=== PATIENT | female | born 1990 | race African-American/Black ===

== ENCOUNTER 2019-01-05 20:58 | Day surgery (SDC) | payer BC ==
[2019-01-05 21:40] VITALS: BMI 35.6
[2019-01-05] MEDS ORDERED: hydrALAZINE 20 MG/ML VIAL SLOW IVP PRN (22:08)
--- NOTE | 2019-01-06 04:40 | SS ---
DATE OF ADMISSION: 01/05/2019 DATE OF DISCHARGE: 01/05/2019 REGULAR PHYSICIAN: Bib Harper MD EVALUATING PHYSICIAN: Chan Elise MD CHIEF COMPLAINT: Spotting. HISTORY OF PRESENT ILLNESS: Ms. Donis is a 28-year-old black G3, P1, with an estimated date of confinement of 04/10/2019, who presents complaining of spotting early this morning. She states she then had sexual intercourse and had more spotting after that. Since that time, she denies leakage of fluid or decreased movement. Her care has been with Dr. Harper and she has been followed for chronic hypertension. PAST OBSTETRICAL HISTORY: Includes one vaginal delivery at term. PAST MEDICAL HISTORY: Chronic hypertension as above. PAST SURGICAL HISTORY: Ectopic of her left fallopian tube. CURRENT MEDICATIONS: 1. vitamins. 2. Aspirin 81 mg daily. 3. Labetalol 100 mg p.o. b.i.d. ALLERGIES: NO KNOWN ALLERGIES. SOCIAL HISTORY: Denies tobacco, alcohol, or drug use. FAMILY HISTORY: Unremarkable. REVIEW OF SYSTEMS: Denies nausea, vomiting, fever, chills, ruptured membranes, or decreased movement. PHYSICAL EXAMINATION: VITAL SIGNS: Stable and she is afebrile in triage. GENERAL: She is very pleasant and in no acute distress. ABDOMEN: Soft, nontender, and gravid. PELVIC: Done by speculum shows the cervix to be closed. There is no blood in the vault. heart rate tracing is stable. No uterine contractions are seen. ASSESSMENT: 1. A 26 and 3/7th week intrauterine . 2. No evidence of bleeding at this time, suspect cervicitis earlier. PLAN: The patient will be dismissed to home. She was given complete precautions and was told to return here should she notice any bleeding or contractions. She voiced understanding of her discharge instructions and was sent home in good condition. Job ID: [id number]
== END 2019-01-05 22:25 | disposition home or self-care (01) ==
LOC: L&D/OP 20:58
PROVIDERS: ATTEND Obstetrics & Gynecology
DX: O26.852 Spotting complicating pregnancy, second trimester (principal); O10.912 Unspecified pre-existing hypertension complicating pregnancy, second trimester; Z3A.26 26 weeks gestation of pregnancy; Z79.82 Long term (current) use of aspirin; Z79.899 Other long term (current) drug therapy
CPT/HCPCS: 99283

== ENCOUNTER 2019-03-20 05:30 | Inpatient (IN) | payer BC ==
[2019-03-20 07:25] VITALS: BMI 37.3
[2019-03-20] MEDS ORDERED: Promethazine HCl 25 MG/ML VIAL IM PRN (08:22)
[2019-03-20] MEDS ORDERED: Ondansetron PF 4 MG/2 ML Vial IVP PRN ×2 (08:22→21:11)
[2019-03-20] MEDS ORDERED: hydrALAZINE 20 MG/ML VIAL SLOW IVP PRN ×2 (08:22→21:11)
[2019-03-20] MEDS ORDERED: HYDROcodone/Acetaminophen 5/325 mg Tablet PO PRN ×2 (08:22)
[2019-03-20] MEDS ORDERED: Lactated Ringer's 1,000 ML IV SCH ×2 (08:22)
[2019-03-20] MEDS ORDERED: NS w/ Oxytocin 10 units 500 ML IV SCH (08:22)
[2019-03-20] MEDS ORDERED: Zolpidem Tartrate 5 MG TAB PO PRN (08:22)
[2019-03-20] MEDS ORDERED: Lidocaine 1% (PF) 30 ML VIAL SC PRN (08:22)
[2019-03-20] MEDS ORDERED: Butorphanol Tartrate 1 MG/ML VIAL SLOW IVP PRN (08:22)
[2019-03-20] MEDS ORDERED: NS / Oxytocin 40 units/1000ml 1,000 ML IV PRN (08:22)
[2019-03-20] MEDS ORDERED: Ibuprofen 800 MG TAB PO PRN (08:22)
[2019-03-20] MEDS ORDERED: NS w/ Oxytocin 10 units 500 ML ONE (08:23)
[2019-03-20 08:24] LABS: Hemoglobin 11.8 g/dL (12.0-16.0); Mean Corpuscular HGB CONC 33.3 g/dL (32.0-36.0); Mean Corpuscular Hemoglobin 29.4 pg (27.0-31.0); Mean Corpuscular Volume 88.4 fL (78.0-98.0); Mean Platelet Volume 9.7 fL (7.4-10.4); Platelet Count 251 thou/uL (130-400); RBC Distribution Width 12.5 % (11.5-14.5); White Blood Cell (WBC) Count 7.2 thou/uL (4.8-10.8)
[2019-03-20 09:03] LABS: Syphilis Antibody Nonreactive (Nonreactive); Syphilis Antibody Index 0.06 S/CO (<1.00 Non-Reactive)
[2019-03-20 09:14] LABS: HIV (1/2) Antibody/Antigen Non-Reactive (NonReactive); HIV 1/2 INDEX 0.13 S/CO (<1.00)
[2019-03-20 09:17] LABS: HBSAB Concentration Greater than 1000.00 mIU/mL; Hep B Surf AB Reactive (NonReactive)
[2019-03-20] MEDS: Labetalol 100 MG TAB PO SCH ×2 (15:10→23:03)
[2019-03-20] MEDS ORDERED: Fentanyl 4 mcg/Bup 0.1% Cadd 100 ML ONE (16:53)
--- NOTE | 2019-03-20 19:19 | PDOC.OPDEL ---
OB Operative/Delivery Note Delivery Dr/Surgeon: Leroy VALDEZ for Leroy RUIZ Pre-Delivery Diagnosis: medically indicated induction (a2 dm htn and hx of lv hypertrophy) Procedure/Post Delivery Dx: spontaneous vaginal delivery Weeks gestation: 37 Anesthesia: epidural - Findings A Sex: male Weight: 0 oz (pend) - 1 min: 8 - 5 min: 9 - Additional Findings/Plan Placenta delivered: spontaneous Repaired Obstetrical Laceration: none Estimated blood loss: 150 Post delivery plan: routine recovery
[2019-03-20] MEDS ORDERED: Lanolin Ointment 7 GM TUBE TOP PRN (21:11)
[2019-03-20] MEDS ORDERED: Milk Of Magnesia 30 ML UDCUP PO PRN (21:11)
[2019-03-20] MEDS ORDERED: NS / Oxytocin 40 units/1000ml 1,000 ML IV SCH (21:11)
[2019-03-20] MEDS ORDERED: Bisacodyl 10 MG SUPP PR PRN (21:11)
[2019-03-20] MEDS: Docusate Calcium (SURFAK) 240 MG CAP PO SCH (23:03)
[2019-03-20] MEDS: Ibuprofen 800 MG TAB PO SCH (23:03)
[2019-03-21] MEDS: Ibuprofen 800 MG TAB PO SCH ×3 (06:08→21:01)
--- NOTE | 2019-03-21 07:38 | PRG ---
DATE OF SERVICE: 03/21/2019 TIME OF SERVICE: 0653 hours. SUBJECTIVE: day #1. The patient is resting comfortably. She reports only issues are mild hypoglycemia with the infant, which I explained was not uncommon for someone who had been on glyburide. OBJECTIVE: VITAL SIGNS: Temperature 98.8, T-max 99.0, pulse 84, respirations 18, and blood pressure 133/81. HEENT: Within normal limits. LUNGS: Clear to auscultation bilaterally. HEART: Regular rhythm. ABDOMEN: Soft, nontender. No rebound or guarding. GENITALIA: Vulva without lesions. Normal lochia. EXTREMITIES: Without clubbing, cyanosis, or edema. LABORATORY DATA: Fasting blood sugar of 72. IMPRESSION: 1. day #1, status post normal spontaneous vaginal delivery at approximately 1900 hours on 03/20. 2. History of left ventricular hypertrophy with good cardiac output during , stable on labetalol 100 b.i.d. 3. History of A2 gestational diabetes, now with normal fasting blood sugars, off medications. PLAN: Routine care. Discharge home tomorrow on 03/[address] Ashok Mcdonough for her history of left ventricular hypertrophy and in [address] [facility] for exam. Job ID: [id number]
[2019-03-21] MEDS: Labetalol 100 MG TAB PO SCH ×2 (09:43→21:01)
[2019-03-21] MEDS: Docusate Calcium (SURFAK) 240 MG CAP PO SCH ×2 (09:43→21:01)
[2019-03-21] MEDS: Ferrous Sulfate 325 MG TAB PO SCH ×2 (10:30→17:06)
[2019-03-21] MEDS ORDERED: Adacel (T-DAP) 0.5 ML SYRINGE IM ONE (21:00)
[2019-03-22] MEDS: Ibuprofen 800 MG TAB PO SCH ×2 (05:14→18:08)
[2019-03-22] MEDS: Ferrous Sulfate 325 MG TAB PO SCH ×2 (07:15→18:09)
--- NOTE | 2019-03-22 08:19 | DIS ---
DATE OF ADMISSION: 03/20/2019 DATE OF DISCHARGE: 03/22/2019 ADMITTING DIAGNOSES: 1. Intrauterine at 37 weeks. 2. Mild hypertension, on labetalol. 3. A2 diabetes, on glyburide. DISCHARGE DIAGNOSES: 1. Intrauterine at 37 weeks. 2. Mild hypertension, on labetalol. 3. A2 diabetes, on glyburide. PROCEDURE: Term spontaneous vaginal delivery. CONSULTATIONS: None. HOSPITAL COURSE: The patient is a 29-year-old, G3, now P2 female, who presented to Labor and Delivery at 37 weeks and 3 days for induction of labor secondary to chronic hypertension on medications and A2 diabetes on medication. Her labor course was uncomplicated, resulting in a term spontaneous vaginal delivery. For complete details, please refer to the delivery note. Her course has been uncomplicated. Blood pressures have remained in the normal to isolated mild range on labetalol. She reports this morning that she is tolerating p.o., voiding on her own, having decreased lochia on day 2. PHYSICAL EXAMINATION: VITAL SIGNS: Current vital signs; blood pressure 137/83, respiratory rate of 18, temperature 98.3, and saturating 99% on room air. GENERAL: She appears to be in no acute distress. She is alert and oriented, cooperative and pleasant to interact with. Fundus is firm. EXTREMITIES: Nontender, nonedematous. DISCHARGE INSTRUCTIONS: The patient is being discharged to home. She has been provided prescriptions already by Dr. Harper for labetalol 100 mg to be taken twice a day and ibuprofen for pain control. The patient will be given instructions to follow up with Dr. Harper in 1 week for blood pressure check or sooner if she is experiencing fever, increasing pain, or bleeding. Job ID: [id number]
[2019-03-22] MEDS: Labetalol 100 MG TAB PO SCH (09:17)
[2019-03-22] MEDS: Docusate Calcium (SURFAK) 240 MG CAP PO SCH (09:17)
[2019-03-22 12:12] VITALS: BP 139/86; TEMP 98.5
== END 2019-03-22 18:35 | disposition home or self-care (01) | DRG 807 ==
LOC: L&D 07:15 → 3SW 21:59
PROVIDERS: ADMIT Obstetrics & Gynecology; ATTEND Obstetrics & Gynecology
PROC: 10907ZC Drainage of Amniotic Fluid, Therapeutic from Products of Conception, Via Natural or Artificial Opening (ICD-10-PCS; principal; 2019-03-20)
PROC: 10E0XZZ Delivery of Products of Conception, External Approach (ICD-10-PCS; 2019-03-20)
PROC: 3E033VJ Introduction of Other Hormone into Peripheral Vein, Percutaneous Approach (ICD-10-PCS; 2019-03-20)
DX: O10.92 Unspecified pre-existing hypertension complicating childbirth (principal); Z37.0 Single live birth; O24.429 Gestational diabetes mellitus in childbirth, unspecified control; Z3A.37 37 weeks gestation of pregnancy
CPT/HCPCS: 36415; 36416; 51702; 85027; 86706; 86780; 86850; 86900; 86901; 87389; J0595; J2590